=== PATIENT | male | born 1990 | race Caucasian/White ===

== ENCOUNTER 2016-10-17 13:24 | Emergency (ER) | payer OTHER ==
[2016-10-17 13:46] VITALS: RESP 16
--- NOTE | 2016-10-17 14:34 | CPEKG ---
Heart Rate: 64 RR Interval: 938 P-R Interval: 160 QRSD Interval: 84 QT Interval: 368 QTC Interval: 380 P Zirconia: 46 QRS Zirconia: 27 T Wave Zirconia: 36 EKG Severity - NORMAL ECG - EKG Impression: SINUS RHYTHM Electronically Signed By: Gregorio Silvestre 17-Oct-2016 16:05:50
[2016-10-17 14:55] LABS: % IMMATURE GRANULYOCYTES 0.3 % (0.0-1.1); ABSOLUTE IMMATURE GRANULOCYTES 0.04 10^3/uL (0.00-0.10); ADD DIFF? NO; ADD MORPH? NO; ADD SCAN? NO; ATYPICAL LYMPHOCYTE FLAG 0 (0-99); FRAGMENT RBC FLAG 0 (0-99); HEMATOCRIT 42.4 % (40.0-51.0); LEFT SHIFT FLG 0 (0-99); LIPEMIA HEMOLYSIS FLAG 90 (0-99); MEAN CELL HEMOGLOBIN 29.5 pg (27.9-34.1); MEAN CELL HEMOGLOBIN CONCENTR. 35.4 g/dL (32.4-36.7); MEAN CELL VOLUME 83.3 fL (81.5-99.8); MEAN PLATELET VOLUME 9.5 fL (8.7-11.7); PLATELET CLUMPS FLAG 0 (0-99); PLATELET COUNT 267 10^3/uL (150-400); RED BLOOD CELL COUNT 5.09 10^6/uL (4.40-6.38); RED CELL DISTRIBUTION WIDTH 11.9 % (11.5-15.2)
[2016-10-17 15:15] LABS: ANION GAP 11 mEq/L (8-16); CALCIUM 9.7 mg/dL (8.5-10.4); CARBON DIOXIDE 21 mEq/l (22-31); CHLORIDE 107 mEq/L (97-110); GLOMERULAR FILTRATION RATE > 60; GLUCOSE 105 mg/dL (70-100); POTASSIUM 4.3 mEq/L (3.5-5.2); SODIUM 139 mEq/L (134-144)
--- NOTE | 2016-10-17 15:25 | EDPHY ---
H & P Smoking Status: Never smoked Time Seen by Provider: 10/17/16 13:43 HPI/ROS: CHIEF COMPLAINT: Syncope, right testicular pain HISTORY OF PRESENT ILLNESS: 26-year-old male presents to the emergency department after having a syncopal episode at work. The patient was caring a box which broke and then a box fell and hit him in the right testicle. He thinks that the pain was so great that caused him to pass out. There was no witnessed seizure activity. No chest pain or difficulty breathing. No abdominal pain. No hematuria. No neck or back pain. No headache. REVIEW OF SYSTEMS: Constitutional: No fever, no chills. Eyes: No double or blurry vision. ENT: No sore throat. Respiratory: No cough, no shortness of breath. Cardiac: No chest pain. Gastrointestinal: No abdominal pain, vomiting or diarrhea. Genitourinary: No dysuria. Musculoskeletal: No neck or back pain. Skin: No rashes. Neurological: No headache. (Imelda Pate) Past Medical/Surgical History: Negative (Imelda Pate) Social History: Single (Imelda Pate) Physical Exam: General Appearance: Alert, no distress. No visible signs of trauma to his head. Mentating normally and answering questions appropriately. Eyes: Pupils equal and round. Extraocular motions are all intact. ENT: Mouth: Mucous membranes moist. Respiratory: No wheezing, rhonchi, or rales, lungs are clear to auscultation. Cardiovascular: Regular rate and rhythm. Gastrointestinal: Abdomen is soft and nontender, no masses, no rebound or guarding, bowel sounds normal. Genitourinary: Uncircumcised penis. Diffusely tender to palpate the right testicle. No abrasion. No ecchymosis. Left testicle is nontender. Neurological: Alert and oriented x 3, cranial nerves II through XII grossly intact Skin: Warm and dry, no rashes. Musculoskeletal: Nontender to palpate along the cervical, thoracic or lumbar spine. Neck is supple. Extremities: Full range of motion and no peripheral edema. Psychiatric: Patient is oriented X 3, there is no agitation. (Imelda Pate) Constitutional: Initial Vital Signs Temperature (C) 36.5 C 10/17/16 13:44 Heart Rate 68 10/17/16 13:44 Respiratory Rate 16 06/20/17 13:44 Blood Pressure 124/93 H 10/17/16 13:44 O2 Sat (%) 97 10/17/16 13:44 O2 Delivery Mode Room Air Allergies/Adverse Reactions: No Known Allergies Allergy (Unverified 04/13/13 05:46) Home Medications: Medication Instructions Recorded NK [No Known Home Meds] 10/17/16 Medical Decision Making - Diagnostics EKG Interpretation: EKG: Complete interpretation has been separately recorded in the [facility] archive. Summary impression: Sinus rhythm, rate 64 (Gregorio Silvestre) Imaging Results: Imaging Impressions Testicular Ultrasound 10/17/16 14:25 Impression: 1. No intratesticular masses or testicular torsion. 2. No hematomas. 3. Small left varicocele. Findings and recommendations discussed with Emergency Department Imelda RICHMOND at 1511 hour, 10/17/2016. Final report concurs with initial preliminary interpretation. ED Course/Re-evaluation: 26-year-old male presents to the emergency department after having a syncopal episode. He had a box drop on his right testicle. Ultrasound of the testicles were unremarkable. Laboratory studies were unremarkable. EKG is normal. I feel that this patient likely had a vasovagal syncope episode after traumatic injury. Patient was monitored throughout his stay in the emergency department and had no recurring syncopal activity. Patient felt comfortable being discharged home. (Imelda Pate) Differential Diagnosis: Syncope including but not limited to vasovagal syncope, arrhythmia, dehydration , and blood loss. (Imelda Pate) - Data Points Laboratory Results: Laboratory Results 10/17/16 14:40 10/17/16 14:40 10/17/16 10/17/16 14:40 14:40 WBC 12.00 10^3/uL H 10^3/uL (3.80-9.50) RBC 5.09 10^6/uL 10^6/uL (4.40-6.38) Hgb 15.0 g/dL g/dL (13.7-17.5) Hct 42.4 % % (40.0-51.0) MCV 83.3 fL fL (81.5-99.8) MCH 29.5 pg pg (27.9-34.1) MCHC 35.4 g/dL g/dL (32.4-36.7) RDW 11.9 % % (11.5-15.2) Plt Count 267 10^3/uL 10^3/uL (150-400) MPV 9.5 fL fL (8.7-11.7) Neut % (Auto) 75.0 % H % (39.3-74.2) Lymph % (Auto) 16.8 % % (15.0-45.0) [place] % (Auto) 6.4 % % (4.5-13.0) Eos % (Auto) 0.7 % % (0.6-7.6) Baso % (Auto) 0.8 % % (0.3-1.7) Nucleat RBC Rel Count 0.0 % % (0.0-0.2) Absolute Neuts (auto) 9.01 10^3/uL H 10^3/uL (1.70-6.50) Absolute Lymphs (auto) 2.01 10^3/uL 10^3/uL (1.00-3.00) Absolute Monos (auto) 0.77 10^3/uL 10^3/uL (0.30-0.80) Absolute Eos (auto) 0.08 10^3/uL 10^3/uL (0.03-0.40) Absolute Basos (auto) 0.09 10^3/uL 10^3/uL (0.02-0.10) Absolute Nucleated RBC 0.00 10^3/uL 10^3/uL (0-0.01) Immature Gran % 0.3 % % (0.0-1.1) Immature Gran # 0.04 10^3/uL 10^3/uL (0.00-0.10) Sodium 139 mEq/L mEq/L (134-144) Potassium 4.3 mEq/L mEq/L (3.5-5.2) Chloride 107 mEq/L mEq/L (97-110) Carbon Dioxide 21 mEq/l L mEq/l (22-31) Anion Gap 11 mEq/L mEq/L (8-16) BUN 18 mg/dL mg/dL (7-23) Creatinine 1.0 mg/dL mg/dL (0.7-1.3) Estimated GFR > 60 Glucose 105 mg/dL H mg/dL (70-100) Calcium 9.7 mg/dL mg/dL (8.5-10.4) Departure - Departure Disposition: Home, Routine, Self-Care Clinical Impression: Syncope Qualifiers: Syncope type: vasovagal syncope Qualified Code(s): R55 - Syncope and collapse Contusion of testicle Qualifiers: Encounter type: initial encounter Qualified Code(s): S30.22XA - Contusion of scrotum and testes, initial encounter Condition: Good Instructions: Syncope (ED), Contusion in Adults (ED) Additional Instructions: Diet and activity as tolerated. Return to the emergency department if you developed blood in your urine, increasing pain, or if you feel worse in any way. Referrals: Yarelis Sterling MD [Medical Doctor] - As per Instructions (Primary care provider travel registered nurse oncology)
[2016-10-17 15:33] VITALS: BP 122/76; PULSE 80; TEMP 96.8; O2SAT 98
== END 2016-10-17 15:33 | disposition home or self-care (01) ==
DX: S30.22XA Contusion of scrotum and testes, initial encounter (principal); R55 Syncope and collapse; W20.8XXA Other cause of strike by thrown, projected or falling object, initial encounter; Y92.69 Other specified industrial and construction area as the place of occurrence of the external cause; Y99.0 Civilian activity done for income or pay; Y93.89 Activity, other specified